=== PATIENT | female | born 1960 | race African-American/Black ===

== ENCOUNTER 2019-10-18 13:27 | Inpatient (IN) ==
[2019-10-18] MEDS ORDERED: SODIUM BICARBONATE 50 MEQ/50 ML VIAL IV ONE (17:47)
[2019-10-18] MEDS ORDERED: CALCIUM GLUCONATE 1,000 MG in SODIUM CHLORIDE 0.9% 100 ML IV ONE (17:53)
[2019-10-18] MEDS ORDERED: ONDANSETRON 4 MG/2 ML VIAL IV PRN (18:02)
[2019-10-18] MEDS ORDERED: SODIUM POLYSTYRENE SULFATE 15 GM/60 ML BOTTLE PO ONE (18:02)
[2019-10-18] MEDS ORDERED: SODIUM POLYSTYRENE SULFATE 15 GM/60 ML BOTTLE PO PRN (18:28)
[2019-10-18] MEDS ORDERED: SODIUM POLYSTYRENE SULFATE 15 GM/60 ML BOTTLE RECTAL PRN (18:29)
[2019-10-18] MEDS ORDERED: SODIUM CHLORIDE 0.9% 1,000 ML IV PRN (18:39)
[2019-10-18 18:44] LABS: Alanine Aminotransferase 28 U/L (13-56); Albumin 2.9 G/DL (3.4-5.0); Alkaline Phosphatase 97 U/L (45-117); Aspartate Amino Transferase 16 U/L (0-37); Bilirubin,Total < 0.39 MG/DL (0.2-1.0); Blood Urea Nitrogen 117 MG/DL (7-18); Estimated Glom Filtration Rate 4 ML/MIN; Glucose 86 MG/DL (74-106); Osmolality,Calculated 308.8 MOS/KG (273-304); Total Protein 7.7 G/DL (6.4-8.3)
[2019-10-18] MEDS: SODIUM BICARB INJ 100 MEQ in DEXTROSE 5% 1,000 ML IV SCH (18:44)
[2019-10-18 18:47] LABS: Calcium < 5.0 MG/DL (8.5-10.1)
[2019-10-18 18:55] LABS: Basophils % 0.2 % (0.0-0.8); Eosinophils # 0.1 10*3/uL (0.0-0.87); Eosinophils % 1.6 % (0.00-10.9); Hematocrit 20.5 VOL% (35.7-47.0); Immature Granulocytes % 0.6 %; Immature Granulocytes Absolute 0.04 #; Lymphocytes # 1.6 10*3/uL (1.4-4.0); Lymphocytes % 25.6 % (21.3-54.2); Mean Corpuscular HGB Conc 31.2 GM/DL (32-36); Mean Corpuscular Volume 96.2 FL (87-102); Mean Platelet Volume 10.4 FL (9.6-12.0); Monocytes % 6.6 % (1.7-12.7); Neutrophils % 65.4 % (38.7-73.9); Platelet Count 297 T/CUMM (130-400); Red Blood Count 2.13 MC/CUMM (3.8-5.5); Red Cell Distribution Width 17.9 % (9.3-17.3); White Blood Count 6.3 T/CUMM (4-12)
[2019-10-18 19:05] LABS: Hemoglobin 6.4 GM/DL (12.0-16.0)
[2019-10-18 19:30] LABS: Amorphous Crystals,Urine Occasional /HPF (Few); Apearance,Urine CLOUDY (Clear); Bacteria,Urine Occasional /HPF (Few); Bilirubin,Urine Negative (Negative); Blood, Urine Large mg/dL (Negative); Glucose,Urine (UA) Negative (Negative); Ketones,Urine Negative (Negative); Nitrite,Urine Positive (Negative); Protein,Urine 100 MG/DL; RBC,Urine 4 /HPF (0-4); Squamous Epithelial Cell,Urine Occasional /HPF (0-10); Urine Color Yellow (Yellow); Urine Specific Gravity 1.008 (1.001-1.035); Urine Urobilinogen < 2.0 EU/DL (0.2-1.0); WBC,Urine 262 /HPF (0-6)
[2019-10-18] MEDS ORDERED: GLUCAGON 1 MG VIAL IM PRN (19:36)
[2019-10-18] MEDS: INSULIN LISPRO 100 UNIT/ML SUBCUT SCH (22:22)
[2019-10-18] MEDS: DEXTROSE 10% 250 ML BAG IV PRN (22:30)
[2019-10-19 03:21] LABS: Basophils % 0.3 % (0.0-0.8); Eosinophils # 0.1 10*3/uL (0.0-0.87); Eosinophils % 1.8 % (0.00-10.9); Hematocrit 25.2 VOL% (35.7-47.0); Immature Granulocytes % 0.3 %; Immature Granulocytes Absolute 0.02 #; Lymphocytes # 1.4 10*3/uL (1.4-4.0); Mean Corpuscular HGB Conc 30.6 GM/DL (32-36); Mean Corpuscular Volume 97.7 FL (87-102); Mean Platelet Volume 11.1 FL (9.6-12.0); Monocytes % 8.4 % (1.7-12.7); Neutrophils % 66.2 % (38.7-73.9); Platelet Count 225 T/CUMM (130-400); Red Blood Count 2.58 MC/CUMM (3.8-5.5); White Blood Count 6.2 T/CUMM (4-12)
[2019-10-19 03:27] LABS: Hemoglobin 7.7 GM/DL (12.0-16.0)
[2019-10-19] MEDS: SODIUM BICARB INJ 100 MEQ in DEXTROSE 5% 1,000 ML IV SCH (06:15)
[2019-10-19 07:23] LABS: Blood Urea Nitrogen 113 MG/DL (7-18); Estimated Glom Filtration Rate 5 ML/MIN
[2019-10-19] MEDS: INSULIN LISPRO 100 UNIT/ML SUBCUT SCH ×4 (07:23→21:13)
[2019-10-19 07:24] LABS: Osmolality,Calculated 304.8 MOS/KG (273-304)
[2019-10-19] MEDS: DEXTROSE 10% 250 ML BAG IV PRN (07:24)
[2019-10-19 07:27] LABS: Calcium < 5.0 MG/DL (8.5-10.1); Glucose 29 MG/DL (74-106)
[2019-10-19] MEDS ORDERED: MAGNESIUM SULF RIDER 2 GM in PREMIX 1 EACH IV ONE (07:28)
[2019-10-19] MEDS: HYDROCORTISONE 100 MG VIAL IV SCH ×2 (07:51→15:44)
[2019-10-19] MEDS ORDERED: CALCIUM GLUCONATE 2,000 MG in SODIUM CHLORIDE 0.9% 100 ML IV ONE (08:00)
[2019-10-19] MEDS ORDERED: LEVOFLOXACIN INJ 750 MG in PREMIX 1 EACH IV ONE (08:00)
[2019-10-19] MEDS: PANTOPRAZOLE 40 MG VIAL IV SCH (08:25)
[2019-10-19] MEDS: CALCIUM (CARBONATE) 500 MG TABLET PO SCH ×3 (12:31→21:14)
[2019-10-19] MEDS: SODIUM BICARB INJ 150 MEQ in DEXTROSE 5% 1,000 ML IV SCH (14:00)
[2019-10-19] MEDS: MAGNESIUM CHLORIDE 64 MG TABLET PO SCH (21:14)
[2019-10-20] MEDS: HYDROCORTISONE 100 MG VIAL IV SCH ×4 (00:45→16:16)
[2019-10-20] MEDS: SODIUM BICARB INJ 150 MEQ in DEXTROSE 5% 1,000 ML IV SCH ×2 (02:48→16:15)
[2019-10-20 06:32] LABS: Osmolality,Calculated 314.1 MOS/KG (273-304)
[2019-10-20 06:37] LABS: Calcium 5.5 MG/DL (8.5-10.1)
[2019-10-20 07:50] LABS: Alanine Aminotransferase 18 U/L (13-56); Albumin 2.6 G/DL (3.4-5.0); Alkaline Phosphatase 75 U/L (45-117); Aspartate Amino Transferase 11 U/L (0-37); Bilirubin,Total < 0.39 MG/DL (0.2-1.0); Blood Urea Nitrogen 116 MG/DL (7-18); Estimated Glom Filtration Rate 5 ML/MIN; Glucose 233 MG/DL (74-106); Total Protein 7.5 G/DL (6.4-8.3)
[2019-10-20 07:52] LABS: Calcium 5.5 MG/DL (8.5-10.1)
[2019-10-20] MEDS: INSULIN LISPRO 100 UNIT/ML SUBCUT SCH ×4 (08:09→20:50)
[2019-10-20] MEDS: MAGNESIUM CHLORIDE 64 MG TABLET PO SCH ×2 (08:10→20:50)
[2019-10-20] MEDS: PANTOPRAZOLE 40 MG VIAL IV SCH (08:10)
[2019-10-20] MEDS: CALCIUM (CARBONATE) 500 MG TABLET PO SCH ×4 (08:10→20:50)
[2019-10-20] MEDS ORDERED: CALCIUM GLUCONATE 2,000 MG in SODIUM CHLORIDE 0.9% 100 ML IV ONE (08:30)
[2019-10-20] MEDS: LEVOTHYROXINE 75 MCG TABLET PO SCH (08:51)
[2019-10-21] MEDS: HYDROCORTISONE 100 MG VIAL IV SCH ×3 (00:23→21:54)
[2019-10-21] MEDS: SODIUM BICARB INJ 150 MEQ in DEXTROSE 5% 1,000 ML IV SCH ×2 (03:57→16:50)
[2019-10-21 04:55] LABS: Basophils % 0.1 % (0.0-0.8); Hematocrit 22.4 VOL% (35.7-47.0); Hemoglobin 7.7 GM/DL (12.0-16.0); Immature Granulocytes % 0.4 %; Immature Granulocytes Absolute 0.03 #; Lymphocytes # 0.9 10*3/uL (1.4-4.0); Lymphocytes % 12.3 % (21.3-54.2); Mean Corpuscular HGB Conc 34.4 GM/DL (32-36); Mean Corpuscular Volume 89.2 FL (87-102); Mean Platelet Volume 11.2 FL (9.6-12.0); Monocytes % 3.2 % (1.7-12.7); Platelet Count 285 T/CUMM (130-400); Red Blood Count 2.51 MC/CUMM (3.8-5.5); Red Cell Distribution Width 15.5 % (9.3-17.3); White Blood Count 7.6 T/CUMM (4-12)
[2019-10-21 05:27] LABS: Alanine Aminotransferase 17 U/L (13-56); Albumin 2.6 G/DL (3.4-5.0); Alkaline Phosphatase 82 U/L (45-117); Aspartate Amino Transferase 11 U/L (0-37); Bilirubin,Total < 0.39 MG/DL (0.2-1.0); Blood Urea Nitrogen 111 MG/DL (7-18); Estimated Glom Filtration Rate 5 ML/MIN; Glucose 214 MG/DL (74-106); Osmolality,Calculated 308.2 MOS/KG (273-304); Total Protein 7.3 G/DL (6.4-8.3)
[2019-10-21 05:30] LABS: Calcium 5.3 MG/DL (8.5-10.1)
[2019-10-21] MEDS ORDERED: CALCIUM GLUCONATE 2,000 MG in SODIUM CHLORIDE 0.9% 100 ML IV ONE (08:00)
[2019-10-21] MEDS: INSULIN LISPRO 100 UNIT/ML SUBCUT SCH ×4 (08:33→21:55)
[2019-10-21] MEDS: CALCIUM (CARBONATE) 500 MG TABLET PO SCH ×4 (08:35→21:54)
[2019-10-21] MEDS: LEVOTHYROXINE 75 MCG TABLET PO SCH (08:36)
[2019-10-21] MEDS: LEVOFLOXACIN INJ 500 MG in PREMIX 1 EACH IV SCH (08:37)
[2019-10-21] MEDS: PANTOPRAZOLE 40 MG TABLET PO SCH (08:37)
[2019-10-21] MEDS: MAGNESIUM CHLORIDE 64 MG TABLET PO SCH ×2 (08:37→21:54)
[2019-10-21] MEDS: calcitrioL 0.25 MCG CAPSULE PO SCH (13:50)
[2019-10-22 06:51] LABS: Basophils % 0.1 % (0.0-0.8); Eosinophils % 0.1 % (0.00-10.9); Hematocrit 23.8 VOL% (35.7-47.0); Hemoglobin 7.8 GM/DL (12.0-16.0); Immature Granulocytes % 0.5 %; Immature Granulocytes Absolute 0.05 #; Lymphocytes # 1.3 10*3/uL (1.4-4.0); Lymphocytes % 14.2 % (21.3-54.2); Mean Corpuscular HGB Conc 32.8 GM/DL (32-36); Mean Corpuscular Volume 91.9 FL (87-102); Mean Platelet Volume 10.7 FL (9.6-12.0); Monocytes % 3.1 % (1.7-12.7); Platelet Count 284 T/CUMM (130-400); Red Blood Count 2.59 MC/CUMM (3.8-5.5); Red Cell Distribution Width 15.2 % (9.3-17.3); White Blood Count 9.3 T/CUMM (4-12)
[2019-10-22 07:24] LABS: Calcium 5.2 MG/DL (8.5-10.1)
[2019-10-22] MEDS: calcitrioL 0.25 MCG CAPSULE PO SCH (08:52)
[2019-10-22] MEDS: PANTOPRAZOLE 40 MG TABLET PO SCH (08:53)
[2019-10-22] MEDS: LEVOTHYROXINE 75 MCG TABLET PO SCH (08:53)
[2019-10-22] MEDS: CALCIUM (CARBONATE) 500 MG TABLET PO SCH ×5 (08:54→20:59)
[2019-10-22] MEDS: HYDROCORTISONE 100 MG VIAL IV SCH (08:54)
[2019-10-22] MEDS: INSULIN LISPRO 100 UNIT/ML SUBCUT SCH ×4 (08:55→21:26)
[2019-10-22] MEDS: SODIUM BICARB INJ 150 MEQ in DEXTROSE 5% 1,000 ML IV SCH ×2 (09:12→21:00)
[2019-10-22] MEDS: MAGNESIUM CHLORIDE 64 MG TABLET PO SCH (20:59)
[2019-10-23 06:00] LABS: Basophils % 0.2 % (0.0-0.8); Eosinophils # 0.1 10*3/uL (0.0-0.87); Eosinophils % 1.4 % (0.00-10.9); Hematocrit 23.2 VOL% (35.7-47.0); Hemoglobin 7.7 GM/DL (12.0-16.0); Immature Granulocytes % 0.5 %; Immature Granulocytes Absolute 0.04 #; Lymphocytes # 2.5 10*3/uL (1.4-4.0); Lymphocytes % 31.2 % (21.3-54.2); Mean Corpuscular HGB Conc 33.2 GM/DL (32-36); Mean Corpuscular Volume 90.6 FL (87-102); Mean Platelet Volume 10.3 FL (9.6-12.0); Monocytes % 7.2 % (1.7-12.7); Neutrophils % 59.5 % (38.7-73.9); Platelet Count 246 T/CUMM (130-400); Red Blood Count 2.56 MC/CUMM (3.8-5.5); White Blood Count 8.1 T/CUMM (4-12)
[2019-10-23 06:21] LABS: Albumin 2.4 G/DL (3.4-5.0); Osmolality,Calculated 304.1 MOS/KG (273-304)
[2019-10-23 06:23] LABS: Calcium 5.1 MG/DL (8.5-10.1)
[2019-10-23 06:26] LABS: Ferritin 163.6 ng/ml (8-252)
[2019-10-23] MEDS: INSULIN LISPRO 100 UNIT/ML SUBCUT SCH ×4 (08:28→21:08)
[2019-10-23] MEDS: MAGNESIUM CHLORIDE 64 MG TABLET PO SCH ×2 (08:53→21:09)
[2019-10-23] MEDS: LEVOTHYROXINE 75 MCG TABLET PO SCH (08:53)
[2019-10-23] MEDS: PANTOPRAZOLE 40 MG TABLET PO SCH (08:53)
[2019-10-23] MEDS: CALCIUM (CARBONATE) 500 MG TABLET PO SCH ×4 (08:53→21:09)
[2019-10-23] MEDS: calcitrioL 0.25 MCG CAPSULE PO SCH (08:53)
[2019-10-23] MEDS: HYDROCORTISONE 100 MG VIAL IV SCH (08:54)
[2019-10-23] MEDS: LEVOFLOXACIN INJ 500 MG in PREMIX 1 EACH IV SCH (08:54)
[2019-10-23 11:25] LABS: Hepatitis B Core IgM Quant 0.21 Index; Hepatitis B Surface Ag Quant 0.13 Index; Hepatitis B Surface Ag Result Negative (Negative); Hepatitis C Virus Ab Quant 0.24 Index; Hepatitis C Virus Ab Result Negative (Negative)
[2019-10-24 06:16] LABS: Osmolality,Calculated 301.1 MOS/KG (273-304)
[2019-10-24 06:18] LABS: Calcium 5.6 MG/DL (8.5-10.1)
[2019-10-24] MEDS: INSULIN LISPRO 100 UNIT/ML SUBCUT SCH ×3 (07:40→21:39)
[2019-10-24 08:31] LABS: Osmolality,Calculated 302.1 MOS/KG (273-304)
[2019-10-24 08:34] LABS: Calcium 5.8 MG/DL (8.5-10.1)
[2019-10-24] MEDS ORDERED: BUPIVACAINE MPF 0.25% 30 ML VIAL ONE (10:07)
[2019-10-24] MEDS ORDERED: HEPARIN 5,000 UNIT/1 ML VIAL ONE (10:07)
[2019-10-24] MEDS ORDERED: LIDOCAINE 1%/EPI INJ 20 ML VIAL ONE (10:07)
[2019-10-24] MEDS: SODIUM CHLORIDE 0.9% 250 ML IV SCH ×2 (10:15→10:45)
[2019-10-24] MEDS ORDERED: ceFAZolin 1,000 MG VIAL ONE (10:33)
[2019-10-24] MEDS ORDERED: TISSUE ADHESIVE 1 EACH APPLICATOR TOP ONE (10:51)
[2019-10-24] MEDS ORDERED: MIDAZOLAM 2 MG/2 ML VIAL ONE (12:41)
[2019-10-24] MEDS ORDERED: fentaNYL 100 MCG/2 ML VIAL ONE (12:41)
[2019-10-24] MEDS ORDERED: KETAMINE 500 MG/10 ML VIAL ONE (12:41)
[2019-10-24] MEDS ORDERED: HEPARIN 10,000 UNIT/10 ML VIAL IV SCH (13:45)
[2019-10-24] MEDS: MAGNESIUM CHLORIDE 64 MG TABLET PO SCH ×2 (17:32→20:30)
[2019-10-24] MEDS: CALCIUM (CARBONATE) 500 MG TABLET PO SCH ×3 (17:33→20:30)
[2019-10-24] MEDS: calcitrioL 0.25 MCG CAPSULE PO SCH (17:34)
[2019-10-24] MEDS: LEVOTHYROXINE 75 MCG TABLET PO SCH (17:35)
[2019-10-24] MEDS: HYDROCORTISONE 100 MG VIAL IV SCH (17:37)
[2019-10-24] MEDS: PANTOPRAZOLE 40 MG TABLET PO SCH (17:37)
[2019-10-25] MEDS: calcitrioL 0.25 MCG CAPSULE PO SCH (11:15)
[2019-10-25] MEDS: MAGNESIUM CHLORIDE 64 MG TABLET PO SCH ×2 (11:16→21:41)
[2019-10-25] MEDS: PANTOPRAZOLE 40 MG TABLET PO SCH (11:16)
[2019-10-25] MEDS: LEVOTHYROXINE 75 MCG TABLET PO SCH (11:17)
[2019-10-25] MEDS: CALCIUM (CARBONATE) 500 MG TABLET PO SCH ×4 (11:23→21:41)
[2019-10-25] MEDS: FOLIC ACID 0.4 MG TABLET PO SCH (11:24)
[2019-10-25] MEDS: INSULIN LISPRO 100 UNIT/ML SUBCUT SCH ×4 (11:42→21:41)
[2019-10-25] MEDS: HYDROCORTISONE 100 MG VIAL IV SCH (12:14)
[2019-10-25] MEDS: LEVOFLOXACIN INJ 500 MG in PREMIX 1 EACH IV SCH (12:15)
[2019-10-26] MEDS: ACETAMINOPHEN 325 MG TABLET PO PRN (06:02)
[2019-10-26 06:07] LABS: Basophils % 0.4 % (0.0-0.8); Eosinophils # 0.2 10*3/uL (0.0-0.87); Eosinophils % 2.1 % (0.00-10.9); Hemoglobin 7.9 GM/DL (12.0-16.0); Immature Granulocytes % 0.5 %; Immature Granulocytes Absolute 0.04 #; Lymphocytes # 2.2 10*3/uL (1.4-4.0); Lymphocytes % 26.2 % (21.3-54.2); Mean Corpuscular HGB Conc 32.9 GM/DL (32-36); Mean Corpuscular Volume 93.4 FL (87-102); Mean Platelet Volume 10.3 FL (9.6-12.0); Monocytes % 6.5 % (1.7-12.7); Neutrophils % 64.3 % (38.7-73.9); Platelet Count 214 T/CUMM (130-400); Red Blood Count 2.57 MC/CUMM (3.8-5.5); Red Cell Distribution Width 14.6 % (9.3-17.3); White Blood Count 8.4 T/CUMM (4-12)
[2019-10-26 06:28] LABS: Calcium 7.1 MG/DL (8.5-10.1); Osmolality,Calculated 284.1 MOS/KG (273-304)
[2019-10-26] MEDS: INSULIN LISPRO 100 UNIT/ML SUBCUT SCH ×4 (08:40→20:25)
[2019-10-26] MEDS: PANTOPRAZOLE 40 MG TABLET PO SCH (09:16)
[2019-10-26] MEDS: MAGNESIUM CHLORIDE 64 MG TABLET PO SCH ×2 (09:16→21:48)
[2019-10-26] MEDS: CALCIUM (CARBONATE) 500 MG TABLET PO SCH ×4 (09:16→21:49)
[2019-10-26] MEDS: calcitrioL 0.25 MCG CAPSULE PO SCH (09:16)
[2019-10-26] MEDS: FOLIC ACID 0.4 MG TABLET PO SCH (09:16)
[2019-10-26] MEDS: LEVOTHYROXINE 75 MCG TABLET PO SCH (09:16)
[2019-10-26] MEDS ORDERED: POLYETHYLENE GLYCOL POWDER 17 GM PACK PO SCH (14:09)
[2019-10-26] MEDS ORDERED: MAGNESIUM HYDROXIDE SUSP 30 ML UDCUP PO ONE (14:10)
[2019-10-26] MEDS ORDERED: DARBEPOETIN ALFA 40 MCG/ML VIAL SUBCUT ONE (19:00)
[2019-10-26] MEDS: DOCUSATE SODIUM 100 MG CAPSULE PO SCH (21:48)
[2019-10-26] MEDS: POLYETHYLENE GLYCOL POWDER 17 GM PACK PO SCH (21:49)
[2019-10-27 06:51] LABS: Basophils % 0.4 % (0.0-0.8); Eosinophils # 0.2 10*3/uL (0.0-0.87); Eosinophils % 2.6 % (0.00-10.9); Hematocrit 23.9 VOL% (35.7-47.0); Hemoglobin 7.7 GM/DL (12.0-16.0); Immature Granulocytes % 0.5 %; Immature Granulocytes Absolute 0.04 #; Lymphocytes # 1.9 10*3/uL (1.4-4.0); Lymphocytes % 23.8 % (21.3-54.2); Mean Corpuscular HGB Conc 32.2 GM/DL (32-36); Mean Platelet Volume 10.5 FL (9.6-12.0); Monocytes % 6.9 % (1.7-12.7); Neutrophils % 65.8 % (38.7-73.9); Platelet Count 217 T/CUMM (130-400); Red Blood Count 2.57 MC/CUMM (3.8-5.5); Red Cell Distribution Width 14.6 % (9.3-17.3)
[2019-10-27 07:09] LABS: Calcium 7.4 MG/DL (8.5-10.1); Osmolality,Calculated 285.2 MOS/KG (273-304)
[2019-10-27 07:22] LABS: Free T4 (Free Thyroxine) 1.12 NG/DL (0.76-1.46); Thyroid Stimulating Hormone 72.8 uIU/ml (0.358-3.74)
[2019-10-27] MEDS: INSULIN LISPRO 100 UNIT/ML SUBCUT SCH ×4 (07:56→21:05)
[2019-10-27] MEDS ORDERED: LEVOTHYROXINE 200 MCG TABLET PO SCH (10:31)
[2019-10-27] MEDS: CALCIUM (CARBONATE) 500 MG TABLET PO SCH ×4 (11:38→21:04)
[2019-10-27] MEDS: calcitrioL 0.25 MCG CAPSULE PO SCH (12:25)
[2019-10-27] MEDS: LEVOTHYROXINE 75 MCG TABLET PO SCH (12:25)
[2019-10-27] MEDS: MAGNESIUM CHLORIDE 64 MG TABLET PO SCH ×2 (12:25→21:04)
[2019-10-27] MEDS: FOLIC ACID 0.4 MG TABLET PO SCH (12:25)
[2019-10-27] MEDS: POLYETHYLENE GLYCOL POWDER 17 GM PACK PO SCH ×2 (12:25→21:04)
[2019-10-27] MEDS: PANTOPRAZOLE 40 MG TABLET PO SCH (12:26)
[2019-10-27] MEDS: DOCUSATE SODIUM 100 MG CAPSULE PO SCH ×2 (12:26→21:04)
[2019-10-27] MEDS ORDERED: EPOETIN ALFA 2,000 UNIT/1 ML VIAL IV PRN (14:37)
[2019-10-27] MEDS: ACETAMINOPHEN 325 MG TABLET PO PRN (20:24)
[2019-10-28 05:12] LABS: Basophils % 0.5 % (0.0-0.8); Eosinophils # 0.2 10*3/uL (0.0-0.87); Eosinophils % 2.8 % (0.00-10.9); Hematocrit 25.3 VOL% (35.7-47.0); Hemoglobin 8.3 GM/DL (12.0-16.0); Immature Granulocytes % 0.3 %; Immature Granulocytes Absolute 0.02 #; Lymphocytes # 1.8 10*3/uL (1.4-4.0); Lymphocytes % 23.8 % (21.3-54.2); Mean Corpuscular HGB Conc 32.8 GM/DL (32-36); Mean Platelet Volume 10.7 FL (9.6-12.0); Monocytes % 8.4 % (1.7-12.7); Neutrophils % 64.2 % (38.7-73.9); Platelet Count 211 T/CUMM (130-400); Red Blood Count 2.72 MC/CUMM (3.8-5.5); Red Cell Distribution Width 14.6 % (9.3-17.3); White Blood Count 7.7 T/CUMM (4-12)
[2019-10-28 05:26] LABS: Osmolality,Calculated 278.4 MOS/KG (273-304)
[2019-10-28] MEDS: INSULIN LISPRO 100 UNIT/ML SUBCUT SCH ×2 (07:33→12:44)
[2019-10-28] MEDS: FOLIC ACID 0.4 MG TABLET PO SCH (08:51)
[2019-10-28] MEDS: POLYETHYLENE GLYCOL POWDER 17 GM PACK PO SCH (08:51)
[2019-10-28] MEDS: CALCIUM (CARBONATE) 500 MG TABLET PO SCH (08:51)
[2019-10-28] MEDS: MAGNESIUM CHLORIDE 64 MG TABLET PO SCH (08:51)
[2019-10-28] MEDS: DOCUSATE SODIUM 100 MG CAPSULE PO SCH (08:51)
[2019-10-28] MEDS: calcitrioL 0.25 MCG CAPSULE PO SCH (08:51)
[2019-10-28] MEDS: PANTOPRAZOLE 40 MG TABLET PO SCH (08:51)
[2019-10-28 11:32] VITALS: BP 133/103
[2019-10-28] MEDS ORDERED: CALCIUM (CARBONATE) 500 MG TABLET PO SCH (21:00)
== END 2019-10-28 13:10 | disposition home or self-care (01) | DRG 673 ==
LOC: SUATTDRO 17:35 → N.ICU 17:35 → SUPCPDRO 17:35 → N.3E 10-21 12:26
PROVIDERS: ADMIT Internal Medicine; ATTEND Hospitalist